=== PATIENT | female | born 1940 | race Caucasian/White ===

== ENCOUNTER 2019-01-16 09:21 | Observation (INO) | payer MEDICARE, OTHER ==
[2019-01-16] MEDS ORDERED: Sodium Chloride 0.9% 10 ML Syringe FLUSH PRN (11:09)
[2019-01-16] MEDS ORDERED: Ondansetron 4 MG Tab.DIS PO PRN (11:09)
[2019-01-16] MEDS: Sodium Chloride 0.9% 1,000 ML IV SCH ×2 (11:41→22:58)
--- NOTE | 2019-01-16 12:54 | PCM.HP.2 ---
H&P History of Present Illness - General Date of Service: 01/16/19 Admit Problem/Dx: Admission Diagnosis/Problem Admission Diagnosis/Problem Pneumonia Source of Information: Patient History Limitations: Reports: No Limitations - History of Present Illness Initial Comments - Free Text/Narative: This is a pleasant 78-year-old female patient was sent over by Nanette Frausto physician's client account assistant for pneumonia. She said 1 week history of cough in the last 2 days she's become short of breath. She has a history of interstitial lung disease and last several months has to rest a little bit more when she does activities. The last couple days has been worse. She has a cough with productive sputum that's yellow and dark brown. She's had some fevers but has not measured it. No chills. She's had a sore throat and some mild body aches. She did not get a flu shot this year. - Related Data Allergies/Adverse Reactions: Allergies Allergy/AdvReac Type Severity Reaction Status Date / Time No Known Allergies Allergy Verified 01/16/19 11:38 Home Medications: Home Meds Aspirin [Halfprin] 81 mg PO BEDTIME 01/16/19 [History] Levothyroxine [Synthroid] 50 mcg PO SUTUTHSA@0600 01/16/19 [History] Levothyroxine [Synthroid] 100 mcg PO MOWEFR@0600 01/16/19 [History] Metoprolol Succinate 25 mg PO DAILY 01/16/19 [History] predniSONE [Prednisone] 2.5 mg PO WITHDINNER 01/16/19 [History] Past Medical History Cardiovascular History: Reports: Hypertension, SOB on Exertion Other Cardiovascular History: States has chest discomfort which goes away with sitting Respiratory History: Reports: COPD, Pulmonary Fibrosis Other OB/BYN History: Cyst removel on ovaries Endocrine/Metabolic History: Reports: Hyperthyroidism - Infectious Disease History Other Infectious Disease History: Unsure measles/mumps as child - Past Surgical History HEENT Surgical History: Reports: Tonsillectomy Cardiovascular Surgical History: Reports: None Social & Family History - Family History Family Medical History: Noncontributory - Tobacco Use Smoking Status *Q: Never Smoker - Caffeine Use Caffeine Use: Reports: Coffee, Soda H&P Review of Systems - Review of Systems: Review Of Systems: See Below General: Reports: Fever, Weakness HEENT: Reports: Sinus Congestion, Sore Throat Pulmonary: Reports: Shortness of Breath, Cough, Sputum. Denies: Hemoptysis Cardiovascular: Reports: No Symptoms Gastrointestinal: Reports: Diarrhea (2 days) Genitourinary: Reports: No Symptoms Musculoskeletal: Reports: No Symptoms Skin: Reports: No Symptoms Neurological: Reports: No Symptoms Exam - Exam Exam: See Below - Vital Signs Vital Signs: Last Vital Signs Temp 99.0 F 01/16/19 10:40 Pulse 106 H 01/16/19 10:40 Resp 20 01/16/19 10:40 BP 124/72 01/16/19 10:40 Pulse Ox 88 L 01/16/19 11:09 Weight: 154 lb 8 oz - Exam General: Alert, Oriented, Cooperative HEENT: Hearing Intact, Posterior Pharynx Clear, TMs Clear Neck: Supple, Trachea Midline. No: +2 Carotid Pulse wo Bruit, Carotid Bruit Lungs: Normal Respiratory Effort, Crackles (Throughout bilateral), Rales Cardiovascular: Regular Rate, Regular Rhythm. No: Systolic Murmur GI/Abdominal Exam: Normal Bowel Sounds, Soft, Non-Tender, No Organomegaly, No Distention Back Exam: Normal Inspection, Full Range of Motion Extremities: Non-Tender, No Pedal Edema Skin: Warm, Dry, Intact Neurological: Normal Speech, Normal Tone Neuro Extensive - Mental Status: Alert, Oriented x3, Normal Mood/Affect, Normal Cognition Psychiatric: Alert, Normal Affect, Normal Mood - Problem List (1) Pneumonia SNOMED Code(s): 686012697 ICD Code: J18.9 - PNEUMONIA, UNSPECIFIED ORGANISM Status: Acute Current Visit: Yes (2) Interstitial lung disease SNOMED Code(s): 344228512 ICD Code: J84.9 - INTERSTITIAL PULMONARY DISEASE, UNSPECIFIED Status: Acute Current Visit: Yes Problem List Initiated/Reviewed/Updated: Yes Orders Last 24hrs: Active Orders 24 hr Category Date Time Status Patient Status [ADT] Routine ADT 01/16/19 11:09 Active Height and Weight [RC] DAILY Care 01/16/19 11:09 Active Intake and Output [RC] QSHIFT Care 01/16/19 11:11 Active May Shower [RC] ASDIRECTED Care 01/16/19 11:09 Active Oxygen Therapy [RC] PRN Care 01/16/19 11:09 Active Pulse Oximetry [RC] PRN Care 01/16/19 11:11 Active Up With Assistance [RC] ASDIRECTED Care 01/16/19 11:09 Active VTE/DVT Education [RC] Per Unit Routine Care 01/16/19 11:09 Active Vital Signs [RC] 08,12,16,20,00,04 Care 01/16/19 11:09 Active Regular Diet [DIET] Diet 01/16/19 Lunch Active CULTURE BLOOD [BC] Urgent Lab 01/16/19 11:25 Received CULTURE BLOOD [BC] Urgent Lab 01/16/19 11:30 Received CULTURE SPUTUM + SMEAR [RM] Routine Lab 01/16/19 11:09 Ordered INFLUENZA A+B AG SCREEN [RM] Routine Lab 01/16/19 12:48 Ordered UA W/O MICROSCOPIC [URIN] Routine Lab 01/16/19 11:09 Ordered Aspirin [Halfprin] Med 01/16/19 21:00 Ordered 81 mg PO BEDTIME Enoxaparin [Lovenox] Med 01/16/19 12:00 Active 40 mg SUBCUT Q24H Levofloxacin/Dextrose 5%-Water [Levaquin in D5W 750 MG/ Med 01/16/19 11:15 Active 150 ML] 750 mg Premix Bag 1 bag IV Q24H Levothyroxine [Synthroid] Med 01/18/19 06:00 Ordered 100 mcg PO MOWEFR@0600 Levothyroxine [Synthroid] Med 01/17/19 06:00 Ordered 50 mcg PO SUTUTHSA@0600 Metoprolol Succinate [Toprol XL] Med 01/17/19 09:00 Ordered 25 mg PO DAILY Sodium Chloride 0.9% [Normal Saline] 1,000 ml Med 01/16/19 11:15 Active IV ASDIRECTED Sodium Chloride 0.9% [Saline Flush] Med 01/16/19 11:09 Active 10 ml FLUSH ASDIRECTED PRN predniSONE Med 01/16/19 18:00 Ordered 2.5 mg PO WITHDINNER Blood Culture x2 Reflex Set [OM.PC] Urgent Oth 01/16/19 11:09 Ordered Peripheral IV Insertion Adult [OM.PC] Routine Oth 01/16/19 11:09 Ordered Sequential Compression Device [OM.PC] Per Unit Routine Oth 01/16/19 11:12 Ordered Resuscitation Status Routine Resus Stat 01/16/19 11:09 Ordered Medication Orders Enoxaparin Sodium (Lovenox) 40 mg SUBCUT Q24H [facility] Levofloxacin/Dextrose 750 mg/ (Premix) 150 mls @ 100 mls/hr IV Q24H [facility] Sodium Chloride (Normal Saline) 1,000 mls @ 100 mls/hr IV ASDIRECTED [facility] Last Admin: 01/16/19 11:41 Dose: 100 mls/hr Sodium Chloride (Saline Flush) 10 ml FLUSH ASDIRECTED PRN PRN Reason: Keep Vein Open Last Admin: 01/16/19 11:40 Dose: 10 ml Assessment/Plan Comment:: 1. Admit for observation. 2. Regular diet 3. She had labs at the clinic except for UA and influenza which we'll do today. 4. Patient wants to be a full code 5. Restart her regular medications. She can use her own. 6. O2 to keep sats greater than 90% 7. Blood cultures, sputum culture 8. Up with assist 9. Levaquin 750 mg IV every 24 hours 10. Lovenox/SCDs for VTE laxatives 11. Normal saline 100 mL an hour. - Mortality Measure Prognosis:: Good
[2019-01-16] MEDS: Levofloxacin/Dextrose 5%-Water 750 MG in Premix Bag 1 BAG IV SCH (13:10)
[2019-01-16] MEDS: Enoxaparin 40 MG/0.4 ML Syringe SUBCUT SCH (13:10)
[2019-01-16] MEDS ORDERED: Aspirin 81 MG Tab.EC PO SCH (21:00)
[2019-01-17] MEDS ORDERED: Levothyroxine 100 MCG Tab *PTOM PO SCH (06:00)
[2019-01-17] MEDS: Sodium Chloride 0.9% 1,000 ML IV SCH ×2 (08:51→09:08)
[2019-01-17] MEDS ORDERED: Metoprolol Succinate 25 MG Tab.ER PO SCH (09:00)
--- NOTE | 2019-01-17 09:15 | PCM.PN ---
- General Info Date of Service: 01/17/19 Admission Dx/Problem (Free Text): The patient feels much better today. She says her breathing is much better although she's required oxygen when she walks the [place]. She's 88% on room air. Her sore throat is gone. She denies fevers, chills. Still has a productive cough. She still feels weak. Appetite is getting better and she's able to maintain hydration. Asking to go home. - Patient Data Vitals - Most Recent: Last Vital Signs Temp 97.8 F 01/17/19 06:15 Pulse 72 01/17/19 08:58 Resp 20 01/17/19 06:15 BP 131/72 01/17/19 08:58 Pulse Ox 96 01/17/19 06:15 Weight - Most Recent: 157 lb 12.8 oz I&O - Last 24 Hours: Intake & Output 01/16/19 01/17/19 01/17/19 22:59 06:59 14:59 Intake Total 1278 842 275 Output Total 75 700 Balance 1203 142 275 Lab Results Last 24 Hours: Laboratory Results - last 24 hr 01/16/19 01/17/19 01/17/19 Range/Units 17:09 06:28 06:28 WBC 12.5 H (4.5-12.0) X10-3/uL RBC 3.62 (3.23-5.20) x10(6)uL Hgb 11.4 L (11.5-15.5) g/dL Hct 33.5 (30.0-51.3) % MCV 92.4 (80-96) fL MCH 31.4 (27.7-33.6) pg MCHC 34.0 (32.2-35.4) g/dL RDW 13.3 (11.5-15.5) % Plt Count 301 (125-369) X10(3)uL MPV 7.3 L (7.4-10.4) fL Neut % (Auto) 76.4 (46-82) % Lymph % (Auto) 10.9 L (13-37) % [place] % (Auto) 10.8 (4-12) % Eos % (Auto) 1 (1.0-5.0) % Baso % (Auto) 1 (0-2) % Neut # (Auto) 9.5 H (1.6-8.3) # Lymph # (Auto) 1.4 (0.6-5.0) # [place] # (Auto) 1.3 (0.0-1.3) # Eos # (Auto) 0.2 (0.0-0.8) # Baso # (Auto) 0.1 (0.0-0.2) # Sodium 136 (135-145) mmol/L Potassium 3.6 (3.5-5.3) mmol/L Chloride 103 (100-110) mmol/L Carbon Dioxide 26 (21-32) mmol/L BUN 12 (7-18) mg/dL Creatinine 1.1 H (0.55-1.02) mg/dL Est Cr Clr Drug Dosing 29.79 mL/min Estimated GFR (MDRD) 48 L (>60) BUN/Creatinine Ratio 10.9 (9-20) Glucose 106 (80-116) mg/dL Calcium 8.9 (8.6-10.2) mg/dL Total Bilirubin 1.3 (0.1-1.3) mg/dL AST 22 (5-25) IU/L ALT 13 (12-36) U/L Alkaline Phosphatase 62 (56-112) IU/L Total Protein 6.9 (6.0-8.0) g/dL Albumin 2.8 L (3.2-4.6) g/dL Globulin 4.1 g/dL Albumin/Globulin Ratio 0.7 Urine Color Yellow (YELLOW) Urine Appearance Clear (CLEAR) Urine pH 5.0 (5.0-6.5) Ur Specific [place] 1.025 (1.010-1.025) Urine Protein 100 H (NEGATIVE) mg/dL Urine Glucose (UA) Normal (NORMAL) mg/dL Urine Ketones 15 H (NEGATIVE) mg/dL Urine Occult Blood Moderate H (NEGATIVE) Urine Nitrite Negative (NEGATIVE) Urine Bilirubin Small H (NEGATIVE) Urine Urobilinogen 1 H (NEGATIVE) mg/dL Ur Leukocyte Esterase Small H (NEGATIVE) Urine RBC 0-5 (0-5) Urine WBC 0-5 (0-5) Ur Epithelial Cells Occasional Amorphous Sediment Few Urine Bacteria Few H (NS) Urine Mucus Moderate H (NS) Jayce Results Last 24 Hours: Microbiology 01/16/19 13:19 Gram Stain - Final Sputum - Expectorated Sputum Culture - Preliminary Normal Felicity 01/16/19 13:18 Influenza Type A Antigen Screen - Final Nasal Aspirate, Unspecified NEGATIVE INFLUENZA A VIRUS AG REFERENCE RANGE: NEGATIVE Influenza Type B Antigen Screen - Final NEGATIVE INFLUENZA B VIRUS AG REFERENCE RANGE: NEGATIVE Med Orders - Current: Current Medications Aspirin (Halfprin) 81 mg PO BEDTIME [facility] Last Admin: 01/16/19 20:51 Dose: 81 mg Enoxaparin Sodium (Lovenox) 40 mg SUBCUT Q24H [facility] Last Admin: 01/16/19 13:10 Dose: 40 mg Levofloxacin/Dextrose 750 mg/ (Premix) 150 mls @ 100 mls/hr IV Q24H [facility] Last Admin: 01/16/19 13:10 Dose: 100 mls/hr Sodium Chloride (Normal Saline) 1,000 mls @ 100 mls/hr IV ASDIRECTED [facility] Last Admin: 01/17/19 08:51 Dose: 100 mls/hr Levothyroxine Sodium (Synthroid) 50 mcg PO SUTUTHSA@0600 [facility] Last Admin: 01/17/19 06:14 Dose: 50 mcg Levothyroxine Sodium (Synthroid) 100 mcg PO MOWEFR@0600 [facility] Metoprolol Succinate (Toprol Xl) 25 mg PO DAILY [facility] Last Admin: 01/17/19 08:58 Dose: 25 mg Prednisone (Prednisone) 2.5 mg PO WITHDINNER [facility] Last Admin: 01/16/19 17:48 Dose: 2.5 mg Sodium Chloride (Saline Flush) 10 ml FLUSH ASDIRECTED PRN PRN Reason: Keep Vein Open Last Admin: 01/16/19 11:40 Dose: 10 ml Discontinued Medications Ondansetron HCl (Zofran Odt) 4 mg PO Q4H PRN PRN Reason: nausea, able to take PO - Exam General: Alert, Oriented, Cooperative Neck: Supple Lungs: Normal Respiratory Effort, Crackles (Throughout but much improved today) Cardiovascular: Regular Rate, Regular Rhythm, No Murmurs Extremities: No Pedal Edema - Problem List & Annotations (1) Pneumonia SNOMED Code(s): 267444044 Code(s): J18.9 - PNEUMONIA, UNSPECIFIED ORGANISM Status: Acute Current Visit: Yes (2) Interstitial lung disease SNOMED Code(s): 701472662 Code(s): J84.9 - INTERSTITIAL PULMONARY DISEASE, UNSPECIFIED Status: Acute Current Visit: Yes - Problem List Review Problem List Initiated/Reviewed/Updated: Yes - My Orders Last 24 Hours: My Active Orders 01/16/19 11:09 Patient Status [ADT] Routine Height and Weight [RC] 18 June Shower [RC] ASDIRECTED Oxygen Therapy [RC] PRN Up With Assistance [RC] ASDIRECTED VTE/DVT Education [RC] Per Unit Routine Vital Signs [RC] 08,12,16,20,00,04 Sodium Chloride 0.9% [Saline Flush] 10 ml FLUSH ASDIRECTED PRN Blood Culture x2 Reflex Set [OM.PC] Urgent Peripheral IV Insertion Adult [OM.PC] Routine Resuscitation Status Routine 01/16/19 11:11 Intake and Output [RC] QSHIFT Pulse Oximetry [RC] PRN 01/16/19 11:12 Sequential Compression Device [OM.PC] Per Unit Routine 01/16/19 11:15 Levofloxacin/Dextrose 5%-Water [Levaquin in D5W 750 MG/150 ML] 750 mg Premix Bag 1 bag IV Q24H Sodium Chloride 0.9% [Normal Saline] 1,000 ml IV ASDIRECTED 01/16/19 11:25 CULTURE BLOOD [BC] Urgent 01/16/19 11:30 CULTURE BLOOD [BC] Urgent 01/16/19 12:00 Enoxaparin [Lovenox] 40 mg SUBCUT Q24H 01/16/19 13:19 CULTURE SPUTUM + SMEAR [RM] Routine 01/16/19 18:00 predniSONE 2.5 mg PO WITHDINNER 01/16/19 21:00 Aspirin [Halfprin] 81 mg PO BEDTIME 01/16/19 Lunch Regular Diet [DIET] 01/17/19 06:00 Levothyroxine [Synthroid] 50 mcg PO SUTUTHSA@0600 01/17/19 09:00 Metoprolol Succinate [Toprol XL] 25 mg PO DAILY 01/18/19 06:00 Levothyroxine [Synthroid] 100 mcg PO MOWEFR@0600 - Plan Plan:: 1. Chest x-ray from the clinic shows interstitial disease with no consolidation or pleural effusions. 2. We'll discharge to home with home health today. Levaquin 750 a day for another 5 days. She will get her IV Levaquin before she leaves. 3. She has home O2 at night but she is to wear all the time until she feels better.
--- NOTE | 2019-01-17 09:28 | PCM.DCSUM1 ---
Discharge Summary - Hospital Course Free Text/Narrative:: Hospital course-A she was admitted put on IV fluids and Levaquin 750 mg IV. O2 continuous was going. Patient very crackly lungs. By the morning patient's had a sore throat but it was gone away and breathing is a little bit better. She still required O2 when she is walking otherwise she drop into the 80s room air. With O2 she did fine. She is able to drink and eat in the morning and wants to go home. Her lungs sounded better and her cough is improving although still productive. Blood cultures was pending. Her white count went from 17,000 on the 12,500. Brief History: This is a pleasant 78-year-old female patient was sent over by Nanette Frausto physician's assistant pastry chef for pneumonia. She said 1 week history of cough in the last 2 days she's become short of breath. She has a history of interstitial lung disease and last several months has to rest a little bit more when she does activities. The last couple days has been worse. She has a cough with productive sputum that's yellow and dark brown. She's had some fevers but has not measured it. No chills. She's had a sore throat and some mild body aches. She did not get a flu shot this year. Diagnosis: Stroke: No - Discharge Data Discharge Date: 01/17/19 Discharge Disposition: Home, W Home Health Agency 06 Condition: Good - Referral to Home Health Date of Face to Face Encounter: 01/17/19 Reason for Homebound Status: 1. Pneumonia. 2. Hypoxia O2 therapy Primary Care Physician: Rina Mckenzie NP Skilled Need: 1. Medication management. 2. O2 management - Discharge Diagnosis/Problem(s) (1) Pneumonia SNOMED Code(s): 614181648 ICD Code: J18.9 - PNEUMONIA, UNSPECIFIED ORGANISM Status: Acute Current Visit: Yes (2) Interstitial lung disease SNOMED Code(s): 983750016 ICD Code: J84.9 - INTERSTITIAL PULMONARY DISEASE, UNSPECIFIED Status: Acute Current Visit: Yes - Patient Instructions Diet: Regular Diet as Tolerated Activity: As Tolerated Driving: May Drive Today Showering/Bathing: May Shower Notify Provider of: Fever Other/Special Instructions: 1. Recheck with Nanette Clements or Renate Mckenzie and 5-7 days. 2. Continue O2. 3. Home health. - Discharge Plan Prescriptions/Med Rec: Levofloxacin [Levaquin] 750 mg PO Q48H #3 tablet Home Medications: Home Meds Aspirin [Halfprin] 81 mg PO BEDTIME 01/16/19 [History] Levothyroxine [Synthroid] 50 mcg PO SUTUTHSA@0600 01/16/19 [History] Levothyroxine [Synthroid] 100 mcg PO MOWEFR@0600 01/16/19 [History] Metoprolol Succinate 25 mg PO DAILY 01/16/19 [History] predniSONE [Prednisone] 2.5 mg PO WITHDINNER 01/16/19 [History] Levofloxacin [Levaquin] 750 mg PO Q48H #3 tablet 01/17/19 [Rx] - Discharge Summary/Plan Comment DC Time >30 min.: No - Patient Data Vitals - Most Recent: Last Vital Signs Temp 97.8 F 01/17/19 06:15 Pulse 72 01/17/19 08:58 Resp 20 01/17/19 06:15 BP 131/72 01/17/19 08:58 Pulse Ox 96 01/17/19 06:15 Weight - Most Recent: 157 lb 12.8 oz I&O - Last 24 hours: Intake & Output 01/16/19 01/17/19 01/17/19 22:59 06:59 14:59 Intake Total 1278 842 475 Output Total 75 700 250 Balance 1203 142 225 Lab Results - Last 24 hrs: Laboratory Results - last 24 hr 01/16/19 01/17/19 01/17/19 Range/Units 17:09 06:28 06:28 WBC 12.5 H (4.5-12.0) X10-3/uL RBC 3.62 (3.23-5.20) x10(6)uL Hgb 11.4 L (11.5-15.5) g/dL Hct 33.5 (30.0-51.3) % MCV 92.4 (80-96) fL MCH 31.4 (27.7-33.6) pg MCHC 34.0 (32.2-35.4) g/dL RDW 13.3 (11.5-15.5) % Plt Count 301 (125-369) X10(3)uL MPV 7.3 L (7.4-10.4) fL Neut % (Auto) 76.4 (46-82) % Lymph % (Auto) 10.9 L (13-37) % [place] % (Auto) 10.8 (4-12) % Eos % (Auto) 1 (1.0-5.0) % Baso % (Auto) 1 (0-2) % Neut # (Auto) 9.5 H (1.6-8.3) # Lymph # (Auto) 1.4 (0.6-5.0) # [place] # (Auto) 1.3 (0.0-1.3) # Eos # (Auto) 0.2 (0.0-0.8) # Baso # (Auto) 0.1 (0.0-0.2) # Sodium 136 (135-145) mmol/L Potassium 3.6 (3.5-5.3) mmol/L Chloride 103 (100-110) mmol/L Carbon Dioxide 26 (21-32) mmol/L BUN 12 (7-18) mg/dL Creatinine 1.1 H (0.55-1.02) mg/dL Est Cr Clr Drug Dosing 29.79 mL/min Estimated GFR (MDRD) 48 L (>60) BUN/Creatinine Ratio 10.9 (9-20) Glucose 106 (80-116) mg/dL Calcium 8.9 (8.6-10.2) mg/dL Total Bilirubin 1.3 (0.1-1.3) mg/dL AST 22 (5-25) IU/L ALT 13 (12-36) U/L Alkaline Phosphatase 62 (56-112) IU/L Total Protein 6.9 (6.0-8.0) g/dL Albumin 2.8 L (3.2-4.6) g/dL Globulin 4.1 g/dL Albumin/Globulin Ratio 0.7 Urine Color Yellow (YELLOW) Urine Appearance Clear (CLEAR) Urine pH 5.0 (5.0-6.5) Ur Specific [place] 1.025 (1.010-1.025) Urine Protein 100 H (NEGATIVE) mg/dL Urine Glucose (UA) Normal (NORMAL) mg/dL Urine Ketones 15 H (NEGATIVE) mg/dL Urine Occult Blood Moderate H (NEGATIVE) Urine Nitrite Negative (NEGATIVE) Urine Bilirubin Small H (NEGATIVE) Urine Urobilinogen 1 H (NEGATIVE) mg/dL Ur Leukocyte Esterase Small H (NEGATIVE) Urine RBC 0-5 (0-5) Urine WBC 0-5 (0-5) Ur Epithelial Cells Occasional Amorphous Sediment Few Urine Bacteria Few H (NS) Urine Mucus Moderate H (NS) JOB Results - Last 24 hrs: Microbiology 01/16/19 13:19 Gram Stain - Final Sputum - Expectorated Sputum Culture - Preliminary Normal Felicity 01/16/19 13:18 Influenza Type A Antigen Screen - Final Nasal Aspirate, Unspecified NEGATIVE INFLUENZA A VIRUS AG REFERENCE RANGE: NEGATIVE Influenza Type B Antigen Screen - Final NEGATIVE INFLUENZA B VIRUS AG REFERENCE RANGE: NEGATIVE Med Orders - Current: Current Medications Aspirin (Halfprin) 81 mg PO BEDTIME [facility] Last Admin: 01/16/19 20:51 Dose: 81 mg Enoxaparin Sodium (Lovenox) 40 mg SUBCUT Q24H [facility] Last Admin: 01/16/19 13:10 Dose: 40 mg Levofloxacin/Dextrose 750 mg/ (Premix) 150 mls @ 100 mls/hr IV Q24H [facility] Last Admin: 01/16/19 13:10 Dose: 100 mls/hr Sodium Chloride (Normal Saline) 1,000 mls @ 100 mls/hr IV ASDIRECTED [facility] Last Admin: 01/17/19 08:51 Dose: 100 mls/hr Levothyroxine Sodium (Synthroid) 50 mcg PO SUTUTHSA@0600 [facility] Last Admin: 01/17/19 06:14 Dose: 50 mcg Levothyroxine Sodium (Synthroid) 100 mcg PO MOWEFR@0600 [facility] Metoprolol Succinate (Toprol Xl) 25 mg PO DAILY [facility] Last Admin: 01/17/19 08:58 Dose: 25 mg Prednisone (Prednisone) 2.5 mg PO WITHDINNER [facility] Last Admin: 01/16/19 17:48 Dose: 2.5 mg Sodium Chloride (Saline Flush) 10 ml FLUSH ASDIRECTED PRN PRN Reason: Keep Vein Open Last Admin: 01/16/19 11:40 Dose: 10 ml Discontinued Medications Ondansetron HCl (Zofran Odt) 4 mg PO Q4H PRN PRN Reason: nausea, able to take PO
[2019-01-17] MEDS: Enoxaparin 40 MG/0.4 ML Syringe SUBCUT SCH (12:52)
[2019-01-17] MEDS: Levofloxacin/Dextrose 5%-Water 750 MG in Premix Bag 1 BAG IV SCH (12:53)
[2019-01-18] MEDS ORDERED: Levothyroxine 100 MCG Tab *PTOM PO SCH (06:00)
== END 2019-01-17 16:46 | disposition home health service (06) ==
LOC: FB.MS 10:24 → INTOOBSV 10:24
PROVIDERS: ADMIT Family Medicine; ATTEND Family Medicine
DX: J84.9 Interstitial pulmonary disease, unspecified (principal); J44.9 Chronic obstructive pulmonary disease, unspecified; I10 Essential (primary) hypertension; E05.90 Thyrotoxicosis, unspecified without thyrotoxic crisis or storm
CPT/HCPCS: 36415; 80053; 81001; 85025; 87040; 87070; 87205; 87804; 87804-59; 94760; 96361; 96365; 96366; 96372; A9270-GY; G0378; J1650; J1956; J7030

== ENCOUNTER 2021-03-03 01:10 | Emergency (ER) | payer MEDICARE, OTHER ==
[2021-03-03] MEDS ORDERED: EPINEPHrine 1:10,000 1 MG/10 ML Syringe IVPUSH ONE ×5 (01:15→01:29)
[2021-03-03 01:58] LABS: BASE EXCESS VENOUS,POC -28 mmol/L (-2 - 3+)
[2021-03-03 02:02] LABS: PCO2 VENOUS,POC 74 mmHg (41-51)
== END 2021-03-03 01:33 | disposition expired ==
LOC: FB.ED 01:15
DX: I46.9 Cardiac arrest, cause unspecified (principal); N17.9 Acute kidney failure, unspecified; E86.0 Dehydration; E87.5 Hyperkalemia; I10 Essential (primary) hypertension; J44.9 Chronic obstructive pulmonary disease, unspecified; E05.90 Thyrotoxicosis, unspecified without thyrotoxic crisis or storm; Z79.899 Other long term (current) drug therapy; Z20.822 Contact with and (suspected) exposure to COVID-19
CPT/HCPCS: 36415; 80053; 84484; 85025; 85610; 85730; 92950; 99285-25; J0171; U0002